=== PATIENT | male | born 1990 | race Caucasian/White ===

== ENCOUNTER 2018-10-22 10:27 | Emergency (ER) | payer OTHER ==
[~2018-10-22] VITALS: Ht 172.7 cm; Wt 74.7 kg
[2018-10-22 10:30] VITALS: Ht 172.7 cm; Wt 74.7 kg
[2018-10-22 11:57] VITALS: BP 122/65; PULSE 57; RESP 20
--- NOTE | 2018-10-22 11:59 | ERD ---
ER Documentation Chief Complaint Chief Complaint Sent from MD for evaluation Hx of AFIb HPI 28-year-old male with a history of ADHD sent in by his primary care doctor for evaluation of possible arrhythmia heard on exam today. No EKG was done at the doctor's office prior to arrival. Patient states he does not feel palpitations or chest pain. No shortness of breath or dizziness. He went into his primary care doctor's office for evaluation of sore throat. He has had flulike symptoms which have been improving. Yesterday he felt some tightness in his throat, which is why he went to his primary care doctor. Currently he is feeling much better. He has no complaints. No fevers or chills. ROS All systems reviewed and are negative except as per history of present illness. Allergies Allergies: Coded Allergies: Penicillins (Verified Allergy, Mild, rash, 10/22/18) PMhx/Soc Hx Psychiatric Problems: Yes (depression) Hx Miscellaneous Medical Probl: Yes (adhd) Hx Alcohol Use: No Hx Substance Use: No Hx Tobacco Use: No FmHx Family History: No diabetes, No coronary disease Physical Exam Vitals Vital Signs Date Temp Pulse Resp B/P (MAP) Pulse Ox O2 O2 Flow FiO2 Time Delivery Rate 10/22/18 98.3 57 20 122/65 97 Room Air 11:57 (84) 10/22/18 98.3 51 20 109/63 98 10:30 (78) Physical Exam Const: No acute distress Head: Atraumatic Eyes: Normal Conjunctiva ENT: Normal External Ears, Nose and Mouth. Neck: Full range of motion. No meningismus. Resp: Clear to auscultation bilaterally Cardio: Regular rate and rhythm, no murmurs Abd: Soft, non tender, non distended. Normal bowel sounds Skin: No petechiae or rashes Back: No midline or flank tenderness Ext: No cyanosis, or edema Neur: Awake and alert Psych: Normal Mood and Affect Procedures/[facility] EMERGENT LABS AND DIAGNOSTIC STUDIES: 12-lead EKG was interpreted by Jayant Merchant MD: Sinus rhythm with premature supraventricular complexes at 97 bpm Rightward axis Normal intervals No significant arrhythmia, no acute ST or T wave changes suggestive of acute ischemia or STEMI. Initial Nursing notes reviewed. Previous Medical Records requested via the Electronic Health Record. EMERGENCY DEPARTMENT COURSE / MEDICAL DECISION MAKING: Patient presents with no specific complaints for evaluation of possible arrhythmia heard on exam today. Vitals are stable. Patient does not have any symptoms related to an arrhythmia. EKG does not show any significant abnormalities. This was explained to the patient. He feels comfortable with the discharge plan. Follow-up with PCP was recommended as scheduled. Return precautions were discussed. Departure Diagnosis: Primary Impression: Encounter for medical assessment Additional Impression: PAC (premature atrial contraction) Condition: Stable EKJOS GRIFFITH MD Oct 22, 2018 11:59
== END 2018-10-22 12:35 | disposition home or self-care (01) ==
LOC: E/R 10:27
DX: I49.1 Atrial premature depolarization (principal)
CPT/HCPCS: 93005; Z7502